=== PATIENT | male | born 1995 | race Caucasian/White ===

== ENCOUNTER 2018-02-10 09:06 | Emergency (ER) | payer SELFPAY ==
[~2018-02-10 09:06] MED LIST: AMOX-559 PO; HYDR-653 PO; IBU600 PO; LOR5 PO; PRED20TA6 PO; SILV20CR2 TP
--- NOTE | 2018-02-10 09:13 | ER Report ---
History and Physical Time Seen By MD: 09:13 HPI/ROS CHIEF COMPLAINT: Sore throat since yesterday HISTORY OF PRESENT ILLNESS: Patient is a 22-year-old male here with complaints of sore throat, odynophagia since yesterday. Patient reports that he developed increased swelling of his posterior oropharynx, especially on the right side, pain with swallowing. Patient also reports having some nausea without rash, abdominal pain or shortness of breath REVIEW OF SYSTEMS: Constitutional: No fever, no chills. Eyes: No discharge. ENT: + sore throat, post oropharyngeal swelling Cardiovascular: No chest pain, no palpitations. Respiratory: No cough, no shortness of breath. Gastrointestinal: No abdominal pain, no vomiting. Genitourinary: No hematuria. Musculoskeletal: No back pain. Skin: No rashes. Neurological: No headache. Allergies: Coded Allergies: No Known Drug Allergies (Verified , 11/02/09) Home Meds Active Scripts Cephalexin 500 Mg Tab (KEFLEX 500 MG TAB) 500 Mg Tablet, 500 MG PO Q6H, #28 TAB Prov:AYO MOTA DO 02/10/18 Tramadol Hcl (TRAMADOL HCL) 50 Mg Tablet, 50 MG PO Q6H PRN for PAIN, #12 TAB 0 Refills Prov:AYO MOTA DO 02/10/18 Prednisone (PREDNISONE) 20 Mg Tablet, 20 MG PO TID for 7 Days, #21 TAB Prov:AYO MOTA DO 02/10/18 Discontinued Scripts Prednisone (PREDNISONE) 20 Mg Tablet, 20 MG PO BID, #10 TAB Prov:ANDREA RAWLS 12/14/16 Amoxicillin/Pot Clav 875-125 Mg Tab (AUGMENTIN 875-125 TABLET) 1 Each Tablet, 1 TAB PO Q12H, #20 TAB Prov:ANDREA RAWLS 12/14/16 Hydrocodone Bit/Acetaminophen (NORCO 5-325 TABLET) 1 Each Tablet, 1 EACH PO Q4- 6H PRN for PAIN, #12 TAB Prov:ANDREA RAWLS 05/01/15 Silver Sulfadiazine (SILVADENE) 20 Gm Cream..g., 1 LYNSEY TP BID, #20 G Apply to burn twice a day for the next 7 days. Prov:ANDREA RAWLS 05/01/15 Hx Smoking: No Smoking Status: Never Smoker, Current: Every Day Smoker Constitutional Vital Sign - Last 24 Hours 02/10/18 02/10/18 02/10/18 02/10/18 09:09 09:11 09:30 09:36 Temp 99.2 Pulse 104 103 Resp 24 B/P (MAP) 150/93 (112) 150/93 123/84 (97) Pulse Ox 96 97 O2 Delivery Room Air 02/10/18 02/10/18 02/10/18 09:41 10:11 10:30 Pulse 98 107 B/P (MAP) 125/93 (104) Pulse Ox 97 90 Physical Exam General Appearance: The patient is alert, has no immediate need for airway protection and no signs of toxicity. Uncomfortable appearing Eyes: Pupils equal and round no pallor or injection. ENT, Mouth: Significant swelling of the posterior oropharynx and tonsillar edema greater on the right than left, + exudates Respiratory: There are no retractions, lungs are clear to auscultation. Cardiovascular: Regular rate and rhythm. Gastrointestinal: Abdomen is soft and non tender, no masses, bowel sounds normal. Neurological: No focal neurological deficits Skin: Warm and dry, no rashes. Musculoskeletal: Neck is supple non tender. Extremities are nontender, nonswollen and have full range of motion. DIFFERENTIAL DIAGNOSIS: After history and physical exam differential diagnosis was considered for viral versus bacterial pharyngitis, peritonsillar abscess, paraesophageal abscess, mononucleosis Medical Decision Making Data Points Result Diagram: 02/10/1847 02/10/18 0947 Laboratory Hematology Test 02/10/18 09:15 02/10/18 09:47 Group A Streptococcus Screen Negative (NEGATIVE) Red Blood Count 5.37 M/uL (4.00-5.60) Mean Corpuscular Volume 92.5 fL (80.0-96.0) Mean Corpuscular Hemoglobin 31.9 pg (26.0-33.0) Mean Corpuscular Hemoglobin Concent 34.5 g/dL (32.0-36.0) Red Cell Distribution Width 13.3 % (11.5-14.5) Mean Platelet Volume 7.7 fL (7.2-11.1) Neutrophils (%) (Auto) 82.6 % (39.4-72.5) Lymphocytes (%) (Auto) 5.5 % (17.6-49.6) Monocytes (%) (Auto) 11.7 % (4.1-12.4) Eosinophils (%) (Auto) 0.0 % (0.4-6.7) Basophils (%) (Auto) 0.2 % (0.3-1.4) Nucleated RBC Relative Count (auto) 0.0 /100WBC Neutrophils # (Auto) 20.0 K/uL (2.0-7.4) Lymphocytes # (Auto) 1.3 K/uL (1.3-3.6) Monocytes # (Auto) 2.8 K/uL (0.3-1.0) Eosinophils # (Auto) 0.0 K/uL (0.0-0.5) Basophils # (Auto) 0.0 K/uL (0.0-0.1) Nucleated RBC Absolute Count (auto) 0.01 K/uL Peripheral Blood Smear Yes Y/N Sodium Level 140 mmol/L (137-145) Potassium Level 4.0 mmol/L (3.5-5.0) Chloride Level 106 mmol/L (98-107) Carbon Dioxide Level 16 mmol/L (22-30) Blood Urea Nitrogen 12 mg/dl (9-21) Creatinine 0.80 mg/dl (0.66-1.25) Glomerular Filtration Rate Calc > 60.0 Random Glucose 120 mg/dl (75-110) Calcium Level 9.8 mg/dl (8.4-10.2) Total Bilirubin 1.1 mg/dl (0.2-1.3) Aspartate Amino Transf (AST/SGOT) 18 U/L (0-35) Alanine Aminotransferase (ALT/SGPT) 19 U/L (0-56) Alkaline Phosphatase 76 U/L (0-126) Total Protein 8.8 g/dl (6.3-8.2) Albumin 4.4 g/dl (3.5-5.0) Chemistry Test 02/10/18 09:15 02/10/18 09:47 Group A Streptococcus Screen Negative (NEGATIVE) White Blood Count 24.2 k/uL (4.5-11.0) Red Blood Count 5.37 M/uL (4.00-5.60) Hemoglobin 17.1 g/dL (14.0-18.0) Hematocrit 49.6 % (42.0-52.0) Mean Corpuscular Volume 92.5 fL (80.0-96.0) Mean Corpuscular Hemoglobin 31.9 pg (26.0-33.0) Mean Corpuscular Hemoglobin Concent 34.5 g/dL (32.0-36.0) Red Cell Distribution Width 13.3 % (11.5-14.5) Platelet Count 373 K/uL (150-450) Mean Platelet Volume 7.7 fL (7.2-11.1) Neutrophils (%) (Auto) 82.6 % (39.4-72.5) Lymphocytes (%) (Auto) 5.5 % (17.6-49.6) Monocytes (%) (Auto) 11.7 % (4.1-12.4) Eosinophils (%) (Auto) 0.0 % (0.4-6.7) Basophils (%) (Auto) 0.2 % (0.3-1.4) Nucleated RBC Relative Count (auto) 0.0 /100WBC Neutrophils # (Auto) 20.0 K/uL (2.0-7.4) Lymphocytes # (Auto) 1.3 K/uL (1.3-3.6) Monocytes # (Auto) 2.8 K/uL (0.3-1.0) Eosinophils # (Auto) 0.0 K/uL (0.0-0.5) Basophils # (Auto) 0.0 K/uL (0.0-0.1) Nucleated RBC Absolute Count (auto) 0.01 K/uL Peripheral Blood Smear Yes Y/N Glomerular Filtration Rate Calc > 60.0 Calcium Level 9.8 mg/dl (8.4-10.2) Total Bilirubin 1.1 mg/dl (0.2-1.3) Aspartate Amino Transf (AST/SGOT) 18 U/L (0-35) Alanine Aminotransferase (ALT/SGPT) 19 U/L (0-56) Alkaline Phosphatase 76 U/L (0-126) Total Protein 8.8 g/dl (6.3-8.2) Albumin 4.4 g/dl (3.5-5.0) EKG/Imaging Imaging CCESSION #: [id number] ADDENDUM #1 Results were called to AYO MOTA on 02/10/2018 10:28 AM. Report Dictated By: Travis White MD at 02/10/2018 10:27 AM Report E-Signed By: Travis White MD at 02/10/2018 10:28 AM ORIGINAL REPORT EXAMINATION: CT neck with IV contrast HISTORY: Trouble swallowing, pain TECHNIQUE: CT was obtained through the neck following IV contrast administration. Sagittal and coronal reformatted images were generated. 75 mL of IV Isovue-370 injected. One of the following dose optimization techniques was utilized in the performance of this exam: automated exposure control; adjustment of the mA and/or kV according to patient size; or use of iterative reconstruction technique. Specific details can be referenced in the facility's radiology CT exam operational policy. COMPARISON: None. FINDINGS: Parotid/submandibular and thyroid glands: 2 mm hypodensity within the right thyroid lobe, axial image 58. Pharyngeal and retropharyngeal soft tissues: Abscess either within the posterior aspect of the right tonsillar pillar versus in the right peritonsillar region measures 2 x 2 centimeters transverse by 3.2 cm craniocaudad. Right greater than left tonsillar pillar hypertrophy partially effaces the oropharyngeal airway. 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 Larynx/glottis and airway: Normal. Lymph nodes: Bilateral enlarged level two lymph nodes. A bilobed right level two lymph node or two closely positioned enlarged lymph nodes measure 4.8 cm craniocaudad, sagittal image 22. Vessels: No significant finding. Visualized orbits / brain: No significant finding. Upper chest: Normal. Bones/sinuses/mastoid air cells: Normal. IMPRESSION: 1. Posterior right tonsillar pillar abscess versus peritonsillar abscess jennifer sures 2 x 2 by 3.2 cm. Right greater than left tonsillar pillar enlargement partially effaces the oropharyngeal airway. 2. Right greater than left enlarged reactive level two lymph nodes. 3. 2 mm right thyroid nodule is statistically benign. Thyroid ultrasound could be utilized for further characterization as needed. ED Course/Re-evaluation ED Course Patient is a 22-year-old male here with swelling and pain of the posterior oropharynx which started approximately 1700 last night. Patient reports odynophagia. There are no signs of trismus, patient is able to clear secretions. Rapid strep was found to be negative. Labs were significant for leukocytosis of 24,000. Patient was given ceftriaxone, fluid bolus, Decadron, Toradol for symptom management. CT imaging was completed of the neck due to significant swelling and a peritonsillar abscess was identified. I provided local anesthesia to the peritonsillar abscess and attempted to aspirate using a needle with safety guard limiting depth to approx 1 cm as to avoid vascular damage. No purulent material was aspirated on this attempt. I contacted [facility] Nose and throat physician division engineer Dr. Marc Black. After reviewing the case in depth and current treatment given, decision was made to treat the patient in the outpatient setting with prednisone, Keflex, analgesia and have h im follow-up with Dr. Black in his office in the next couple days. I discussed this option with the patient and he voiced understanding and agreed with the plan and agreed to promptly return if he developed signs of trismus, difficulty clearing secretions, worsening pain, nausea, vomiting, difficulty breathing. Patient was stable at time of discharge Decision to Disposition Date: Feb 10, 2018 Decision to Disposition Time: 11:45 Depart Departure Latest Vital Signs Vital Signs Date Time Temp Pulse Resp B/P (MAP) Pulse Ox O2 Delivery O2 Flow Rate FiO2 02/10/18 10:30 125/93 (104) 02/10/18 10:11 107 90 02/10/18 09:11 99.2 24 Room Air Impression: Primary Impression: Peritonsillar abscess Condition: Improved Disposition: HOME OR SELF-CARE New Scripts Cephalexin 500 Mg Tab (KEFLEX 500 MG TAB) 500 Mg Tablet 500 MG PO Q6H, #28 TAB Prov: AYO MOTA DO 02/10/18 Tramadol Hcl (TRAMADOL HCL) 50 Mg Tablet 50 MG PO Q6H PRN for PAIN, #12 TAB 0 Refills Prov: AYO MOTA DO 02/10/18 Prednisone (PREDNISONE) 20 Mg Tablet 20 MG PO TID for 7 Days, #21 TAB Prov: AYO MOTA DO 02/10/18 Patient Instructions: Peritonsillar Abscess (ED) Additional Instructions: Please take prednisone 20 mg 3 times daily, tramadol you may take every 6 hours as needed for pain, Keflex please take one tablet 4 times daily for antibacterial treatment. Ear nose and throat Dr. Black will see in the outpatient setting in his clinic in the next few days for follow-up care. Please contact his office at [phone]. Please return immediately to the emergency department if you develop difficulty opening your mouth, difficulty clearing secretions, inability to swallow, worsening pain, shortness of breath. AYO MOTA DO Feb 10, 2018 09:13
[2018-02-10] MEDS ORDERED: DEXAMETHASONE SOD 4 MG/ML VIAL PO ONE (09:20)
[2018-02-10] MEDS ORDERED: LIDOCAINE 1% MDV 200 MG/20 ML INJ ONE (09:20)
[2018-02-10] MEDS ORDERED: cefTRIAXone 1 GM VIAL IM ONE (09:20)
[2018-02-10] MEDS ORDERED: DEXAMETHASONE SOD PHOS 10MG/ML IM ONE (09:30)
[2018-02-10] MEDS ORDERED: IOPAMIDOL 76% 75 ML INFUS BTL 75 ML ONE (10:02)
[2018-02-10 10:03] LABS: PLATELET COUNT, AUTOMATED 373 K/uL (150-450)
[2018-02-10 10:30] VITALS: BP 125/93
--- NOTE | 2018-02-10 10:31 | RADIOLOGY IMAGING REPORT ---
FACILITY: [facility] PATIENT NAME: Travis Haas : 1995 MR: [id number] V: [id number] EXAM DATE: ORDERING PHYSICIAN: AYO MOTA TECHNOLOGIST: Location: [facility] Patient: Travis Haas : 1995 Visit/Account:[id number] Date of Sevice: 02/10/2018 ADDENDUM #1 Results were called to AYO MOTA on 02/10/2018 10:28 AM. Report Dictated By: Travis White MD at 02/10/2018 10:27 AM Report E-Signed By: Travis White MD at 02/10/2018 10:28 AM ORIGINAL REPORT EXAMINATION: CT neck with IV contrast HISTORY: Trouble swallowing, pain TECHNIQUE: CT was obtained through the neck following IV contrast administration. Sagittal and co princess reformatted images were generated. 75 mL of IV Isovue-370 injected. One of the following dose optimization techniques was utilized in the performance of this exam: autom ated exposure control; adjustment of the mA and/or kV according to patient size; or use of iterative reconstruction technique. Specific details can be referenced in the facility's radiology CT exam ope rational policy. COMPARISON: None. FINDINGS: Parotid/submandibular and thyroid glands: 2 mm hypodensity within the right thyroid lobe, axial image 58. Pharyngeal and retropharyngeal soft tissues: Abscess either within the posterior aspect of the right tonsillar pillar versus in the right peritonsillar region measures 2 x 2 centimeters transverse by 3. 2 cm craniocaudad. Right greater than left tonsillar pillar hypertrophy partially effaces the oropha ryngeal airway. Oral cavity and access rn space soft tissues: Normal. Larynx/glottis and airway: Normal. Lymph nodes: Bilateral enlarged level two lymph nodes. A bilobed right level two lymph node or two c losely positioned enlarged lymph nodes measure 4.8 cm craniocaudad, sagittal image 22. Vessels: No significant finding. Visualized orbits / brain: No significant finding. Upper chest: Normal. Bones/sinuses/mastoid air cells: Normal. IMPRESSION: 1. Posterior right tonsillar pillar abscess versus peritonsillar abscess measures 2 x 2 by 3.2 cm. Right greater than left tonsillar pillar enlargement partially effaces the oropharyngeal airway. 2. Right greater than left enlarged reactive level two lymph nodes. 3. 2 mm right thyroid nodule is statistically benign. Thyroid ultrasound could be utilized for furt her characterization as needed. Report Dictated By: Travis White MD at 02/10/2018 10:18 AM Report E-Signed By: Travis White MD at 02/10/2018 10:26 AM WSN:[id number]
[2018-02-10] MEDS ORDERED: KETOROLAC 60 MG/2 ML VIAL IM ONE (11:00)
[2018-02-10] MEDS ORDERED: NS(*) 0.9% 1000 ML BAG 1,000 ML IV ONE (11:05)
[2018-02-10] MEDS ORDERED: KETOROLAC 30 MG/ML VIAL IVP ONE (11:05)
[2018-02-10] MEDS ORDERED: TRAM-420 PO (11:14)
[2018-02-10] MEDS ORDERED: CEPH500T7 PO (11:14)
[2018-02-10] MEDS ORDERED: PRED20TA6 PO (11:14)
== END 2018-02-10 11:57 | disposition home or self-care (01) ==
LOC: ER 09:15
DX: J36 Peritonsillar abscess (principal)
CPT/HCPCS: 10021; 70491; 85025; 87081; 87880; 96361; 96372; 96374; 99284; J0696; J1100; J1885; J2001; J7030; Q9967; 82040; 82247; 82310; 82374; 82435; 82565; 82947; 84075; 84132; 84155; 84295; 84450; 84460; 84520